=== PATIENT | male | born 1995 | race African-American/Black ===

== ENCOUNTER 2017-12-04 17:25 | Inpatient (IN) | payer OTHER ==
[~2017-12-04] VITALS: Ht 167.6 cm; Wt 87.4 kg
[2017-12-04 18:21] LABS: Basophils # (auto) 0 uL; Basophils % (auto) 0.5 % (0.0-2.0); Eosinophils # (auto) 0 uL; Eosinophils % (auto) 0.1 % (0.0-7.0); Hematocrit 46.3 % (41.0-53.0); Hemoglobin 15.2 g/dL (13.5-17.5); Lymphocytes # (auto) 0.6 uL; Lymphocytes % (auto) 8.4 % (10.0-50.0); Mean Corpuscular Hemoglobin 30.8 pg (28.0-32.0); Mean Corpuscular Hgb Conc. 32.9 g/dL (32.0-36.0); Mean Corpuscular Volume 93.5 fL (80.0-100.0); Monocytes # (auto) 0.8 uL; Monocytes % (auto) 10.1 % (0.0-12.0); Neutrophils # (auto) 6.1 uL; Neutrophils % (auto) 80.9 % (37.0-80.0); Nucleated Red Blood Cells % 0.6 %; Platelet Count (auto) 117 10^3/uL (140-450); Red Blood Cells 4.95 10^6/uL (4.5-5.90); White Blood Cell 7.6 10^3/uL (4.4-10.8)
[2017-12-04] MEDS ORDERED: ACETAMINOPHEN 500 MG TAB PO ONE (18:22)
[2017-12-04] MEDS ORDERED: SODIUM CHLORIDE 0.9% 1,000 ML IV ONE ×2 (18:30→21:15)
[2017-12-04 18:31] LABS: Albumin 3.6 g/dL (3.4-5.0); BUN/Creatinine Ratio 6.7; Bilirubin, Total 0.8 mg/dL (0.2-1.0); Calcium 8.5 mg/dL (8.5-10.1); Total Protein 8.4 g/dL (6.4-8.2)
[2017-12-04] MEDS ORDERED: ACETAMINOPHEN 325 MG TAB PO PRN (21:30)
[2017-12-04] MEDS: D5W/SOD CHL 0.45% 1,000 ML IV SCH (21:30)
[2017-12-04] MEDS: OSELTAMIVIR 75 MG CAP PO SCH (22:00)
[2017-12-04] MEDS ORDERED: HYDROcodone-ACET 10/325MG TAB PO ONE (22:45)
[2017-12-05] MEDS: D5W/SOD CHL 0.45% 1,000 ML IV SCH ×2 (04:10→10:23)
[2017-12-05] MEDS ORDERED: cefTRIAXone SOD 500 MG VL IV SCH (10:00)
[2017-12-05] MEDS ORDERED: cefTRIAXone 1GM/50ML D5W 50 ML IV SCH (10:00)
[2017-12-05] MEDS ORDERED: ALBUTEROL SULF 2.5 MG/0.5ML(0.5%) NEB SOLN NEB PRN (10:15)
[2017-12-05] MEDS: OSELTAMIVIR 75 MG CAP PO SCH ×2 (10:23→21:00)
[2017-12-05 11:01] LABS: Albumin 3.3 g/dL (3.4-5.0); BUN/Creatinine Ratio 7.8; Calcium 8.4 mg/dL (8.5-10.1); Potassium 3.7 mmol/L (3.5-5.1); Total Protein 7.3 g/dL (6.4-8.2)
[2017-12-05 15:44] VITALS: BP 141/82
[2017-12-05 16:23] VITALS: BP 132/68
[2017-12-05 19:50] VITALS: BP 132/68
[2017-12-05 22:00] VITALS: BP 120/73
[2017-12-05] MEDS ORDERED: ACETAMINOPHEN 325 MG TAB PO PRN (23:45)
[2017-12-06 05:00] VITALS: BP 114/66
[2017-12-06 05:58] LABS: Urine Bacteria NONE SEEN /hpf (None Seen); Urine Blood Negative /uL (Negative); Urine Mucus FEW (None Seen); Urine Specific Gravity 1.016 (1.001-1.035); Urine WBC 1 /hpf (0 - 3)
[2017-12-06 06:23] LABS: Alcohol, Urine < 3.0 mg/dL (0-5); Amphetamine Screen, Urine NEGATIVE (NEGATIVE); Barbiturate Scree,Urine NEGATIVE (NEGATIVE); Benzodiazephine Screen, Urine NEGATIVE (NEGATIVE); Cannabinoid Screen, Urine NEGATIVE (NEGATIVE); Cocaine Screen, Urine NEGATIVE (NEGATIVE); Opiate Scree,Urine NEGATIVE (NEGATIVE); Phencyclidine Screen, Urine NEGATIVE (NEGATIVE)
[2017-12-06 06:31] LABS: Hematocrit 45.8 % (41.0-53.0); Hemoglobin 15.1 g/dL (13.5-17.5); Mean Corpuscular Hemoglobin 31.1 pg (28.0-32.0); Mean Corpuscular Hgb Conc. 32.9 g/dL (32.0-36.0); Mean Corpuscular Volume 94.4 fL (80.0-100.0); Platelet Count (auto) 152 10^3/uL (140-450); Red Blood Cells 4.86 10^6/uL (4.5-5.90); Red Cell Distribution Width 12.9 % (11.8-14.3); White Blood Cell 3.3 10^3/uL (4.4-10.8)
[2017-12-06 07:10] LABS: Calcium 8.4 mg/dL (8.5-10.1)
[2017-12-06 07:33] LABS: Band Neutrophils % (manual) 0; Basophils % (manual) 0 (0.0-2.0); Blast Cells 0; Metamyelocytes % 0; Myelocytes % 0; Promyelocytes % 0; Reactive Lymphocytes 0
[2017-12-06 07:57] LABS: Eosinophils % (manual) 6 (0-7); Lymphocytes % (manual) 38 (10.0-50.0); Monocytes % (manual) 22 (0-12)
[2017-12-06 08:48] VITALS: BP 114/70
[2017-12-06] MEDS: OSELTAMIVIR 75 MG CAP PO SCH ×2 (10:13→22:45)
[2017-12-06] MEDS: cefTRIAXone 1GM/10ml IVPUSH 10 ML IV SCH (10:13)
[2017-12-06] MEDS: PANTOPRAZOLE 40 MG TAB PO SCH (10:13)
[2017-12-06 13:20] VITALS: BP 140/58
[2017-12-06 17:05] VITALS: BP 113/71
[2017-12-06 21:50] VITALS: BP 115/77
[2017-12-07 04:32] VITALS: BP 115/63
[2017-12-07] MEDS ORDERED: TAMIFLU PO (08:33)
[2017-12-07 09:00] VITALS: BP 115/72
[2017-12-07] MEDS: OSELTAMIVIR 75 MG CAP PO SCH (09:00)
[2017-12-07] MEDS: PANTOPRAZOLE 40 MG TAB PO SCH (09:08)
[2017-12-07] MEDS: cefTRIAXone 1GM/10ml IVPUSH 10 ML IV SCH (09:08)
[2017-12-07 09:51] VITALS: BP 115/72
== END 2017-12-07 13:00 | DRG 194 ==
LOC: ER 17:25 → OVERFLOW 17:26 → EEVIPCON 17:26 → EAST 12-05 13:53
PROVIDERS: ADMIT Internal Medicine; ATTEND Internal Medicine
DX: J10.1 Influenza due to other identified influenza virus with other respiratory manifestations (principal); N17.9 Acute kidney failure, unspecified; E86.0 Dehydration; J45.909 Unspecified asthma, uncomplicated; Z83.3 Family history of diabetes mellitus
CPT/HCPCS: 36415; 71045; 80048; 80053; 80307; 81001; 83605; 85007; 85025; 85027; 87040; 87804; 93005; 96361; 96365; J0696